=== PATIENT | female | born 1945 | race Caucasian/White ===

== ENCOUNTER 2017-12-24 13:38 | Emergency (ER) | payer MEDICARE ==
[2017-12-24 15:05] LABS: ABS Basophils 0.1 10^3/ul (0-0.2); ABS Eosinophils 0.6 10^3/ul (0-0.6); ABS Lymphocytes 1.9 10^3/ul (1.0-4.8); ABS Monocytes 0.5 10^3/ul (0-0.8); ABS Neutrophils 7.1 10^3/ul (1.5-7.7); ABS Nucleated RBC 0 10^3/ul; Eosinophil % 6.3 % (0-6); Hematocrit 39 % (35-47); Hemoglobin 13.3 g/dl (12.0-16.0); Lymphocyte % 18.7 % (25-47); Mean Corpuscular HGB Conc 34 g/dl (31-36); Mean Corpuscular Hemoglobin 30 pg (27-31); Mean Corpuscular Volume 88 fL (80-97); Mean Platelet Volume 8 um3 (7.4-10.4); Nucleated Red Blood Cells % 0; Platelet Count 309 10^3/ul (150-450); Red Cell Distribution Width 14 % (10.5-15); White Blood Count 10.1 10^3/ul (3.5-10.8)
[2017-12-24 15:10] LABS: EGFR Non-African American 57.5 (>60)
[2017-12-24 18:08] VITALS: BP 169/92
--- NOTE | 2017-12-24 21:16 | ED ---
George Henson Jennifer, scribed for Nahid Watkins MD on 12/24/17 at 1741 . Hypertension - HPI Summary HPI Summary: The patient is a 72 year old female who was sent to the ED from for high blood pressure that began this morning. The patient explains that she has a nurse who comes to her home every year to check on her health status. The nurse saw that she had high blood pressure two weeks ago, so the patient has been monitoring it. However, her blood pressure was still high this morning after taking her medication, so she decided to go to . She would like to go to [place] this weekend but is worried her BP will go over 200. - History of Current Complaint Chief Complaint: EDHypertension Stated Complaint: HIGH BLOOD PRESSURE Time Seen by Provider: 12/24/17 17:18 Hx Obtained From: Patient Onset/Duration: Started Hours Ago - This morning, Still Present Timing: Constant Aggravating Factor(s): Nothing Alleviating Factor(s): Nothing - Allergies/Home Medications Allergies/Adverse Reactions: Allergies Allergy/AdvReac Type Severity Reaction Status Date / Time an antibiotic Allergy See Comment Uncoded 03/12/16 09:58 Home Medications: Home Medications Budesonide/Formote 80/4.5(NF) [Symbicort 80/4.5 (NF)] 2 puff INH QAM 12/24/17 [ History Confirmed 12/24/17] Multivitamins/Minerals TAB* [Thera M Plus TAB*] 1 tab PO DAILY 12/24/17 [ History Confirmed 12/24/17] amLODIPine TAB* [Norvasc 5 mg TAB*] 10 mg PO DAILY 12/24/17 [History Confirmed 12/24/17] PMH/Surg Hx/FS Hx/Imm Hx Cardiovascular History: Reports: Hx Hypertension Respiratory History: Reports: Hx Chronic Obstructive Pulmonary Disease (COPD) Sensory History: Reports: Hx Contacts or Glasses Denies: Hx Legally Blind EENT History: Denies: Hx Deafness - Surgical History Surgery Procedure, Year, and Place: tubal, Infectious Disease History: No Infectious Disease History: Denies: Traveled Outside the [place] in Last 30 Days - Family History Known Family History: Positive: Hypertension - Social History Alcohol Use: None Substance Use Type: Reports: None Smoking Status (MU): Former Smoker Review of Systems Negative: Fever Positive: Other - Hypertension All Other Systems Reviewed And Are Negative: Yes Physical Exam - Summary Physical Exam Summary: Appearance: The patient is well-nourished in no acute distress and in no acute pain. Skin: The skin is warm and dry and skin color reflects adequate perfusion. HEENT: ~The head is normocephalic and atraumatic. The pupils are equal and reactive. The conjunctivae are clear and without drainage. ~Nares are patent and without drainage. ~Mouth reveals moist mucous membranes and the throat is without erythema and exudate. ~The external ears are intact. The ear canals are patent and without drainage. The tympanic membranes are intact. Neck: the neck is supple with full range of motion and non-tender. There are no carotid bruits. ~There is no neck vein distension. Respiratory: Chest is non-tender. ~Lungs are clear to auscultation and breath sounds are symmetrical and equal. Cardiovascular: Heart is regular rate and rhythm. ~There is no murmur or rub auscultated. ~~There is no peripheral edema and pulses are symmetrical and equal. Abdomen: The abdomen is soft and non-tender. ~There are normal bowel sounds heard in all four quadrants and there is no organomegaly palpated. Musculoskeletal: There is no back tenderness noted. ~Extremities are non-tender with full range of motion. ~There is good capillary refill. ~There is no peripheral edema or calf tenderness elicited. Neurological: Patient is alert and oriented to person, place and time. ~The patient has symmetrical motor strength in all four extremities. ~Cranial nerves are grossly intact. Deep tendon reflexes are symmetrical and equal in all four extremities. Psychiatric: The patient has an appropriate affect and does not exhibit any anxiety or depression. Triage Information Reviewed: Yes Vital Signs On Initial Exam: Initial Vitals Temp Pulse Resp BP Pulse Ox 98.6 F 87 17 177/82 86 12/24/17 14:05 12/24/17 14:05 12/24/17 14:05 12/24/17 14:05 12/24/17 14:05 Vital Signs Reviewed: Yes Diagnostics - Vital Signs Vital Signs Temp Pulse Resp BP Pulse Ox 12/24/17 17:16 97 21 98 12/24/17 17:14 155/70 12/24/17 15:17 98.1 F 95 17 173/77 95 12/24/17 14:05 98.6 F 87 17 177/82 86 - Laboratory Lab Results: Lab Results 12/24/17 12/24/17 Range/Units 14:44 14:44 WBC 10.1 (3.5-10.8) 10^3/ul RBC 4.50 (4.0-5.4) 10^6/ul Hgb 13.3 (12.0-16.0) g/dl Hct 39 (35-47) % MCV 88 (80-97) fL MCH 30 (27-31) pg MCHC 34 (31-36) g/dl RDW 14 (10.5-15) % Plt Count 309 (150-450) 10^3/ul MPV 8 (7.4-10.4) um3 Neut % (Auto) 69.7 (38-83) % Lymph % (Auto) 18.7 L (25-47) % Mercer % (Auto) 4.7 (1-9) % Eos % (Auto) 6.3 H (0-6) % Baso % (Auto) 0.6 (0-2) % Absolute Neuts (auto) 7.1 (1.5-7.7) 10^3/ul Absolute Lymphs (auto) 1.9 (1.0-4.8) 10^3/ul Absolute Monos (auto) 0.5 (0-0.8) 10^3/ul Absolute Eos (auto) 0.6 (0-0.6) 10^3/ul Absolute Basos (auto) 0.1 (0-0.2) 10^3/ul Absolute Nucleated RBC 0 10^3/ul Nucleated RBC % 0 Sodium 137 (133-145) mmol/L Potassium 3.6 (3.5-5.0) mmol/L Chloride 99 L (101-111) mmol/L Carbon Dioxide 31 (22-32) mmol/L Anion Gap 7 (2-11) mmol/L BUN 13 (6-24) mg/dL Creatinine 0.95 (0.51-0.95) mg/dL Est GFR ( Amer) 74.0 (>60) Est GFR (Non-Af Amer) 57.5 (>60) BUN/Creatinine Ratio 13.7 (8-20) Glucose 118 H (70-100) mg/dL Calcium 9.9 (8.6-10.3) mg/dL Total Bilirubin 0.40 (0.2-1.0) mg/dL AST 23 (13-39) U/L ALT 18 (7-52) U/L Alkaline Phosphatase 94 (34-104) U/L Total Protein 8.1 (6.4-8.9) g/dL Albumin 4.2 (3.2-5.2) g/dL Globulin 3.9 (2-4) g/dL Albumin/Globulin Ratio 1.1 (1-3) Result Diagrams: 12/24/17 14:44 12/24/17 14:44 Lab Statement: Any lab studies that have been ordered have been reviewed, and results considered in the medical decision making process. Hypertension Course/Dx - Course Course Of Treatment: Ms. Amaral was sent over from [facility] with a concern for HTN. Here her BPs were fine and her W/U WNL. I recommended that she F/U with Dr. Villalobos for management of her medications. She is on a maximum dose of Norvasc. - Diagnoses Provider Diagnoses: Hypertension Discharge - Discharge Plan Condition: Stable Disposition: HOME Patient Education Materials: Hypertension (ED) Referrals: Mj Villalobos MD [Primary Care Provider] - 4 Days Additional Instructions: Follow up with your primary care physician in four days. Return to the emergency department for any new or worsening symptoms. The documentation as recorded by the George menon Jennifer accurately reflects the service I personally performed and the decisions made by , Nahid Watkins MD.
== END 2017-12-24 18:07 | disposition home or self-care (01) ==
LOC: ED 13:38
DX: I10 Essential (primary) hypertension (principal); Z87.891 Personal history of nicotine dependence; Z88.1 Allergy status to other antibiotic agents
CPT/HCPCS: 36415; 80053; 85025; 99282